=== PATIENT | female | born 1950 | race Caucasian/White ===

== ENCOUNTER → 2024-10-11 15:58 | Outpatient (REF) | payer MEDICARE, OTHER, SELFPAY | LOC: MRI 15:58 | PROVIDERS: ATTENDING PHYSICIAN Pain Medicine Interventional Pain Medicine; FAMILY PHYSICIAN Family Medicine Sports Medicine | DX: M54.16 Radiculopathy, lumbar region (principal) | CPT/HCPCS: 72158; A9575 ==